=== PATIENT | male | born 1985 | race Caucasian/White ===

== ENCOUNTER 2016-08-19 17:51 | Emergency (ER) | payer SELFPAY ==
[~2016-08-19] VITALS: Ht 170.2 cm; Wt 72.0 kg
[~2016-08-19 17:51] MED LIST: ALBUTEROL SULF8.5 GM IH; Flomax PO; Levaquin PO; MAALOX MAXIMUM355 ML PO; NAPROSYN500 MG PO; PEPCID20 MG PO; Percocet 7.5/325,End PO; Tylenol Regular Stre PO
[2016-08-19 18:36] LABS: HEMATOCRIT 46.1 % (38.0-50.0); MCH 29.1 PG (29.0-34.0); MCHC 34.5 G/DL (30.0-36.0); MCV 84.4 FL (86-99); MEAN PLAT.VOLUME 9.3 uM^3 (9.0-12.4); PLATELET COUNT 268 K/uL (156-360); RBC DIS.WIDTH-CV 12.3 % (11.8-14.6); RBC DIS.WIDTH-SD 37.2 % (39-53); RED BLOOD COUNT 5.46 M/uL (4.00-5.50); WHITE BLOOD COUNT 7.6 K/uL (4.1-10.2)
[2016-08-19 18:37] LABS: ADD MIUA? NO; BILIRUBIN NEGATIVE; BLOOD NEGATIVE; COLOR YELLOW ((YELLOW)); GLUCOSE (STRIP) NEGATIVE; KETONES 20; LEUKOCYTES NEGATIVE; NITRITE NEGATIVE; PROTEIN (STRIP) NEGATIVE; SPECIFIC GRAVITY 1.012 (1.000-1.030); UROBILINOGEN 0.2 MG/DL (0.2-1.0)
[2016-08-19 18:49] LABS: CHLORIDE 103 mEq/L (99-109); POTASSIUM 3.7 mEq/L (3.7-5.4); SODIUM 139 mEq/L (136-147)
[2016-08-19 18:52] LABS: GLUCOSE 91 mg/dL (70-99)
[2016-08-19 18:53] LABS: ANION GAP 13 MEQ/L (2-14)
[2016-08-19 18:54] LABS: TOTAL BILIRUBIN 0.8 mg/dL (0.0-1.0)
[2016-08-19 18:55] LABS: ALKALINE PHOSPHATASE 61 IU/L (3-129); GFR ESTIMATE (CALCULATED) > 59 mL/min/
[2016-08-19 18:56] LABS: UREA NITROGEN (BUN) 11 mg/dL (9-23)
[2016-08-19 18:59] LABS: LIPASE 26 U/L (1.0-51.0)
[2016-08-19 20:00] VITALS: BP 142/96
== END 2016-08-19 20:02 | disposition home or self-care (01) ==
LOC: EME 17:51
PROVIDERS: Physician Assistant
DX: R10.31 Right lower quadrant pain (principal); Z88.2 Allergy status to sulfonamides; Z87.891 Personal history of nicotine dependence
CPT/HCPCS: 74176; 80053; 81003; 83690; 85027; 99281; 99282